=== PATIENT | male | born 1980 | race African-American/Black ===

== ENCOUNTER 2019-06-08 11:53 | Emergency (ER) | payer SELFPAY ==
--- NOTE | 2019-06-08 13:33 | EDM.PDOC ---
ED HPI GENERAL MEDICAL PROBLEM - General Chief Complaint: Chest Pain Stated Complaint: CHEST PAIN YESTERDAY - WANTS TO BE CHECKED Time Seen by Provider: 06/08/19 13:32 Source of Information: Reports: Patient History Limitations: Reports: No Limitations - History of Present Illness INITIAL COMMENTS - FREE TEXT/NARRATIVE: 38-year-old male of -[place] descent presents to the ED with concerns of development of left precordial chest pain that radiated into his left shoulder of sudden onset yesterday afternoon. States it lasted about 10-15 minutes and then dissipated. It has not bothered him since. No associated signs or symptoms of problems swallowing. He has no cough or fever. No chest wall injury. 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 He doesn't feel any more short of breath today than usual. He denies any injuries to his chest wall. No similar problems in the past. 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 While in the ED today he received a phone call from his girlfriend indicating that she was recently diagnosed with chlamydia. He therefore should be tested for this disease process. He is asymptomatic with no dysuria urgency or frequency and no discharge per urethra. Onset: Sudden Onset Date: 06/07/19 Onset Time: 15:00 Duration: Minutes: (Pain lasted about 10-15 minutes. It did radiate into the left shoulder but not down his arm.) Location: Reports: Chest, Radiates to (Precordial chest and shoulder.) Quality: Reports: Ache ( Transient lasting about 10-15 minutes.), Pressure Severity: Moderate (He kept on driving the truck. He did make him stop driving.) Improves with: Reports: Other Worsens with: Denies: None (Pain went away on its own.), Breathing, Cold Therapy , Eating, Medication, Other, Movement Context: Denies: Activity, Exercise, Lifting, Sick Contact, Trauma, Other Associated Symptoms: Reports: No Other Symptoms Treatments PROFESSOR OF MANAGEMENT: Reports: Other (see below) (None.) - Related Data Allergies Allergy/AdvReac Type Severity Reaction Status Date / Time No Known Allergies Allergy Verified 06/08/19 12:09 Home Meds: Home Meds . [No Known Home Meds] 06/08/19 [History] Past Medical History - Past Health History Medical/Surgical History: Denies Medical/Surgical History Social & Family History - Tobacco Use Smoking Status *Q: Current Every Day Smoker Years of Tobacco use: 5 Packs/Tins Daily: 0.5 - Recreational Drug Use Recreational Drug Use: No - Living Situation & Occupation Living situation: Reports: Single Occupation: Employed ED ROS GENERAL - Review of Systems Review Of Systems: See Below Constitutional: Reports: No Symptoms HEENT: Reports: No Symptoms Respiratory: Reports: No Symptoms Cardiovascular: Reports: No Symptoms Endocrine: Reports: No Symptoms GI/Abdominal: Reports: No Symptoms : Reports: No Symptoms Musculoskeletal: Reports: No Symptoms Skin: Reports: No Symptoms Neurological: Reports: No Symptoms Psychiatric: Reports: No Symptoms Hematologic/Lymphatic: Reports: No Symptoms Immunologic: Reports: No Symptoms ED EXAM, GENERAL - Physical Exam Exam: See Below Exam Limited By: No Limitations General Appearance: Alert, WD/WN, No Apparent Distress, Other Eye Exam: Bilateral Eye: Normal Inspection Throat/Mouth: Normal Inspection, Normal Lips, Normal Teeth, Normal Oropharynx Head: Atraumatic, Normocephalic Neck: Normal Inspection, Supple, Non-Tender, Full Range of Motion. No: Lymphadenopathy (L), Lymphadenopathy (R) Respiratory/Chest: No Respiratory Distress, Lungs Clear, Normal Breath Sounds, Chest Non-Tender, Other (I cannot elicit any chest wall pain on examination.) Cardiovascular: Normal Peripheral Pulses, Regular Rate, Rhythm, No Edema, No Gallop, No Murmur, No Rub Peripheral Pulses: 3+: Posterior Tibial (L), Posterior Tibial (R), Dorsalis Pedis (L), Dorsalis Pedis (R) GI/Abdominal: Normal Bowel Sounds, Soft, Non-Tender, No Organomegaly, No Abnormal Bruit, No Mass, Pelvis Stable Back Exam: Normal Inspection, Full Range of Motion Extremities: Normal Inspection, Normal Range of Motion, Non-Tender, No Pedal Edema Neurological: Alert, Oriented, CN II-XII Intact, Normal Cognition Psychiatric: Normal Affect, Normal Mood Skin Exam: Warm, Dry, Intact, Normal Color, No Rash EKG INTERPRETATION EKG Date: 06/08/19 Time: 12:40 Rhythm: NSR Rate (Beats/Min): 75 [place]: Normal P-Wave: Present QRS: Other (Left ventricular hypertrophy pattern.) ST-T: Other (Diffuse early repolarization pattern. T-wave inversion aVL nonspecific) QT: Normal EKG Interpretation Comments: Essentially normal ECG with no signs of ischemia. Course - Vital Signs Last Recorded V/S: Last Vital Signs Temp 36.7 C 06/08/19 12:07 Pulse 72 06/08/19 12:07 Resp 16 06/08/19 12:07 BP 134/91 H 06/08/19 12:07 Pulse Ox 100 06/08/19 12:07 - Orders/Labs/Meds Orders: Active Orders 24 hr Category Date Time Status EKG Documentation Completion [RC] ASDIRECTED Care 06/08/19 12:11 Active EKG 12 Lead [EK] Stat Ther 06/08/19 12:11 Ordered Labs: Laboratory Tests 06/08/19 06/08/19 06/08/19 Range/Units 13:45 13:52 13:52 WBC 4.93 (4.23-9.07) K/mm3 RBC 4.69 (4.63-6.08) M/mm3 Hgb 15.2 (13.7-17.5) gm/dl Hct 43.4 (40.1-51.0) % MCV 92.5 H (79.0-92.2) fl MCH 32.4 H (25.7-32.2) pg MCHC 35.0 (32.2-35.5) g/dl RDW Std Deviation 40.4 (35.1-43.9) fL Plt Count 116 L (163-337) K/mm3 MPV 11.3 (9.4-12.3) fl Neut % (Auto) 43.6 (34.0-67.9) % Lymph % (Auto) 43.0 (21.8-53.1) % [place] % (Auto) 7.5 (5.3-12.2) % Eos % (Auto) 4.9 (0.8-7.0) Baso % (Auto) 0.8 (0.1-1.2) % Neut # (Auto) 2.15 (1.78-5.38) K/mm3 Lymph # (Auto) 2.12 (1.32-3.57) K/mm3 [place] # (Auto) 0.37 (0.30-0.82) K/mm3 Eos # (Auto) 0.24 (0.04-0.54) K/mm3 Baso # (Auto) 0.04 (0.01-0.08) K/mm3 Manual Slide Review Normal smear D-Dimer, Quantitative 0.27 (0.19-0.50) mg/L Sodium (136-145) mEq/L Potassium (3.5-5.1) mEq/L Chloride (98-107) mEq/L Carbon Dioxide (21-32) mEq/L Anion Gap (5-15) BUN (7-18) mg/dL Creatinine (0.7-1.3) mg/dL Est Cr Clr Drug Dosing mL/min Estimated GFR (MDRD) (>60) mL/min BUN/Creatinine Ratio (14-18) Glucose (74-106) mg/dL Calcium (8.5-10.1) mg/dL Total Bilirubin (0.2-1.0) mg/dL AST (15-37) U/L ALT (16-63) U/L Alkaline Phosphatase (46-116) U/L Troponin I (0.00-0.056) ng/mL C-Reactive Protein (<1.0) mg/dL Total Protein (6.4-8.2) g/dl Albumin (3.4-5.0) g/dl Globulin gm/dL Albumin/Globulin Ratio (1-2) C trachomatis DNA (PCR) Not detected N gonorrhoeae DNA (PCR) Not detected 06/08/19 Range/Units 13:52 WBC (4.23-9.07) K/mm3 RBC (4.63-6.08) M/mm3 Hgb (13.7-17.5) gm/dl Hct (40.1-51.0) % MCV (79.0-92.2) fl MCH (25.7-32.2) pg MCHC (32.2-35.5) g/dl RDW Std Deviation (35.1-43.9) fL Plt Count (163-337) K/mm3 MPV (9.4-12.3) fl Neut % (Auto) (34.0-67.9) % Lymph % (Auto) (21.8-53.1) % [place] % (Auto) (5.3-12.2) % Eos % (Auto) (0.8-7.0) Baso % (Auto) (0.1-1.2) % Neut # (Auto) (1.78-5.38) K/mm3 Lymph # (Auto) (1.32-3.57) K/mm3 [place] # (Auto) (0.30-0.82) K/mm3 Eos # (Auto) (0.04-0.54) K/mm3 Baso # (Auto) (0.01-0.08) K/mm3 Manual Slide Review D-Dimer, Quantitative (0.19-0.50) mg/L Sodium 137 (136-145) mEq/L Potassium 4.3 (3.5-5.1) mEq/L Chloride 102 (98-107) mEq/L Carbon Dioxide 29 (21-32) mEq/L Anion Gap 10.3 (5-15) BUN 14 (7-18) mg/dL Creatinine 1.1 (0.7-1.3) mg/dL Est Cr Clr Drug Dosing 86.72 mL/min Estimated GFR (MDRD) > 60 (>60) mL/min BUN/Creatinine Ratio 12.7 L (14-18) Glucose 90 (74-106) mg/dL Calcium 9.1 (8.5-10.1) mg/dL Total Bilirubin 0.3 (0.2-1.0) mg/dL AST 17 (15-37) U/L ALT 23 (16-63) U/L Alkaline Phosphatase 94 (46-116) U/L Troponin I < 0.017 (0.00-0.056) ng/mL C-Reactive Protein < 0.2 (<1.0) mg/dL Total Protein 7.8 (6.4-8.2) g/dl Albumin 3.9 (3.4-5.0) g/dl Globulin 3.9 gm/dL Albumin/Globulin Ratio 1.0 (1-2) C trachomatis DNA (PCR) N gonorrhoeae DNA (PCR) - Radiology Interpretation Free Text/Narrative:: 38-year-old male presents the ED for evaluation of transient left-sided precordial chest pain yesterday. 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 Came on suddenly was fairly heavy pressure discomfort rated up into his left neck anterior shoulder. Last for about 10-15 minutes and then dissipated. No associated burping belching or heartburn symptoms. He's had no pain since. However his employer instruct him to get checked out before he came back to work. His ECG shows sinus rhythm with no signs of ischemia. Examination was completely normal. 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 Sits for prolonged periods of time. There was no sign of DVT in his lower extremities on exam. Secondly upon his request after being told by his girlfriend this morning that she tested positive for chlamydia he requests gonorrhea chlamydia screen. - Re-Assessments/Exams Free Text/Narrative Re-Assessment/Exam: 06/08/19 14:50 chest x-ray done portably is completely normal. Labs reveal a normal white count of 4.93. The auto differential shows 43.6% neutrophils 43% lymphocytes mildly elevated. Hemoglobin is 15.2 with hematocrit of 43.4. White count 116,000 slightly low. D-dimer is normal at 0.27. Sodium 137 with potassium of 4.3. Chloride 102 with a bicarbonate 29. Anion gap is 10.3. The BUN 14 with a creatinine of 1.1. GFR is greater than 60. Glucose is 90 with a calcium of 9.1. Liver function is normal. Troponin I is less than 0.017. C- reactive protein is less than 0.2. Total protein 7.8 with no been fraction of 3.9. 06/08/19 18:48 Patient is negative for chlamydia and gonorrhea. These results. Came back just before the patient was discharged in the nurse relayed this information to the patient on my behalf. Departure - Departure Time of Disposition: 15:38 Disposition: Home, Self-Care 01 Reason for Transfer *Q: Other Condition: Fair Clinical Impression: Non-cardiac chest pain Instructions: Nonspecific Chest Pain, [id number] Referrals: PCP,None [Primary Care Provider] - Forms: ED Department Discharge, ED Return to Work/School Form Additional Instructions: Evaluation the emergent today in regards to transient left precordial chest pain that rate up into her left shoulder while driving truck yesterday. Exact cause of this is not fully elucidated. Chest x-ray today is normal. ECG is normal. Lab tests show no evidence of heart related illness. Lab tests do suggest any underlying viral infection which could've caused some inflammation of the muscles in the chest wall in which case you at risk of developing further chest wall pain. The cause of this sometimes can be food pipe spasm which we'll send pain up into the left shoulder and chest as well. At any rate no evidence of heart related illness and you're cleared to return to work with no restrictions. In regards to STD workup the results are not yet available to time of your discharge. I will call you later when they become available and medication to be followed to the drugstore if needed.
[2019-06-08 15:36] LABS: C. TRACHOMATIS BY PCR NOT DETECTED; N. GONORRHOEAE BY PCR NOT DETECTED
--- NOTE | 2019-06-08 15:37 | CR ---
Chest: Portable view of the chest was obtained. Comparison: No prior chest x-ray is available. Heart size and mediastinum are normal. Lungs are clear. Bony structures are grossly intact. Impression: 1. Nothing acute is seen on portable chest x-ray. Diagnostic code #1
== END 2019-06-08 15:45 | disposition home or self-care (01) ==
LOC: JD.ED 11:53
DX: R07.89 Other chest pain (principal); F17.210 Nicotine dependence, cigarettes, uncomplicated
CPT/HCPCS: 36415; 71045; 71045-26; 80053; 84484; 85025; 85379; 86140; 87491; 87591; 93005; 93010; 99284; 99285-25